=== PATIENT | male | born 1960 | race Caucasian/White ===

== ENCOUNTER 2017-05-10 08:46 | Inpatient (IN) | payer OTHER ==
[~2017-05-10 08:46] MED LIST: Buffered Lidocaine 0.9% SYRIN* 5 ML/SYR SYRINGE INTRADERM ONE; Metoclopramide TAB* 10 MG PO ONE
[2017-05-10] MEDS ORDERED: ceFAZolin 1 GM in Dextrose (*) 1 GM/50 ML BAG IVPB ONE (09:02)
[2017-05-10] MEDS ORDERED: Heparin VIAL(*) 5000 UNITS/ML VIAL (FIVE THOUSAND) ONE (09:02)
[2017-05-10] MEDS ORDERED: ceFAZolin 2 GM PREMIX (*) 2 GM/50 ML BAG IVPB ONE (09:02)
[2017-05-10] MEDS ORDERED: Metoclopramide TAB* 10 MG ONE (09:02)
[2017-05-10] MEDS ORDERED: Clindamycin 900 MG IVPREMIX(* 900 MG/50 ML SDV IV ONE (09:06)
[2017-05-10] MEDS ORDERED: fentaNYL* 50 MCG/ML 5 ML VIAL (250 MCG VIAL) ONE (10:16)
[2017-05-10] MEDS ORDERED: Lidocaine 2% PF * 5 ML VIAL ONE (10:16)
[2017-05-10] MEDS ORDERED: Rocuronium* 10 MG/ML VIAL ONE (10:16)
[2017-05-10] MEDS ORDERED: Midazolam* 1 MG/ML 10 ML VIAL (10 MG) ONE (10:16)
[2017-05-10] MEDS ORDERED: Ketorolac INJ* 30 MG/ML 1 ML VIAL ONE (10:16)
[2017-05-10] MEDS ORDERED: Ondansetron INJ* 2 MG/ML VIAL ONE (10:16)
[2017-05-10] MEDS ORDERED: KETAMINE HCL* 50 MG/ML 10 ML VIAL ONE (10:16)
[2017-05-10] MEDS ORDERED: Dexamethasone IV* 4 MG/ML 1 ML (4 MG) ONE (10:16)
[2017-05-10] MEDS ORDERED: Propofol* 10 MG/ML 20 ML BTL IV PUSH ONE (10:16)
[2017-05-10] MEDS ORDERED: Bupivacaine 0.25% SDV* 30 ML ONE (11:08)
[2017-05-10] MEDS ORDERED: Methylene Blue 0.5 %* 50 MG/10 ML AMP IV ONE (11:08)
[2017-05-10] MEDS ORDERED: EPHEDrine (Pressors)* 50 MG/ML VIAL ONE (11:57)
[2017-05-10] MEDS ORDERED: Atropine 1MG/ML INJ* 1 ML VIAL ONE (12:01)
[2017-05-10] MEDS ORDERED: Phenylephrine IV* 40 MCG/ML 10 ML SYRINGE ONE (12:07)
[2017-05-10] MEDS ORDERED: Ondansetron INJ* 2 MG/ML VIAL IV PRN ×2 (12:35→15:59)
[2017-05-10] MEDS ORDERED: Naloxone* 0.4 MG/ML 1 ML VIAL IV PRN (12:35)
[2017-05-10] MEDS ORDERED: fentaNYL* 50 MCG/ML 2 ML VIAL (100 MCG VIAL) IV PRN (12:35)
[2017-05-10] MEDS ORDERED: fentaNYL* 50 MCG/ML 2 ML VIAL (100 MCG VIAL) ONE (14:58)
[2017-05-10] MEDS ORDERED: HYDROmorphone INJ* 1 MG/ML CARPUJECT SYRINGE IV PRN (15:59)
[2017-05-10] MEDS ORDERED: diPHENhydraMINE IV* 50 MG/ML 1 ml VIAL (BENADRYL) SLOW PUSH PRN (15:59)
[2017-05-10] MEDS ORDERED: Acetaminophen ADULT LIQ* 650 MG/20.3 ML UDC PO PRN (15:59)
--- NOTE | 2017-05-10 16:11 | PN ---
Progress Note - Progress Note Date of Service: 05/10/17 Note: Brief Operative Note: Pre-op: Morbid obesity Post-op: Same Procedure: Laparoscopic RYGB with removal of gastric band Surgeon: Dr. Muller Occ Therapy Asst: ANNIKA Mendoza Anesthesia: GETA Fluids: LR 3,500 cc EBL: Minimal Catheter: Gage to gravity Drains: RIMA to self-suction Specimen: None Findings: See dictated op note
[2017-05-10] MEDS: Famotidine IV* 10 MG/ML 2 ML (20 mg) IV SLOW PU SCH (23:57)
[2017-05-10] MEDS: HYDROmorphone INJ* 2 MG/ML CARPUJECT SYRINGE IV PRN (23:57)
[2017-05-11] MEDS: Ketorolac INJ* 30 MG/ML 1 ML VIAL IV PRN ×3 (02:22→22:20)
[2017-05-11] MEDS: Heparin VIAL(*) 5000 UNITS/ML VIAL (FIVE THOUSAND) SUBCUT SCH ×3 (05:55→22:14)
[2017-05-11] MEDS: HYDROmorphone INJ* 2 MG/ML CARPUJECT SYRINGE IV PRN ×3 (06:01→18:37)
--- NOTE | 2017-05-11 08:34 | PN ---
Progress Note - Progress Note Date of Service: 05/11/17 SOAP: Subjective: C/o back pain and hasn't been OOB since arriving to floor. No N/V. Objective: Vital Signs Temp 97.9 F 05/10/17 18:40 Pulse 82 05/10/17 18:40 Resp 15 05/11/17 06:01 BP 152/85 05/10/17 18:40 Pulse Ox 93 05/10/17 20:18 Gen: NAD Abd: dressing c/d/i; soft; ND; mild tenderness; RIMA sanguinous. Intake & Output 05/10/17 05/11/17 05/11/17 18:59 06:59 18:59 Intake Total 3650 0 1920 Output Total 425 2960 Balance 3225 -2960 1920 Weight 291 lb 12.8 oz Intake: IV Fluids 3650 CEFAZOLIN 3 GMS 100 CLINDAMYCIN 900MG 50 LR 3500 IVPB 1920 LR 1920 Oral 0 Output: RIMA #1 25 110 Morales 400 2850 Assessment: POD#1 s/p LRYGB after removal LAGB. Plan: UGI xray this am prior to starting po. OOB/amb. d/c morales. Cont RIMA.
[2017-05-11] MEDS: Famotidine IV* 10 MG/ML 2 ML (20 mg) IV SLOW PU SCH ×2 (09:36→20:42)
--- NOTE | 2017-05-11 10:45 | RAD ---
INDICATION: 1 day postop following laparoscopic Hilda-en-Y bariatric surgery. COMPARISON: October 01, 2014 TECHNIQUE: 0.4 minutes fluoroscopy. FINDINGS: Swallowed Gastrografin passed from the small gastric pouch through the Hilda limb without delay. No enteric leak or obstruction evident. Associated laparoscopy port cutaneous pranav. Surgical drain in place. Neural stimulator leads noted. IMPRESSION: No evidence for enteric leak or obstruction following Hilda-en-Y gastric bypass. CPT II Codes: 6045F
[2017-05-11] MEDS: Gabapentin CAP(*) 300 MG PO SCH (12:45)
[2017-05-11] MEDS: HYDROcodone/ACET. 7.5/325 LIQ* 15 ML UDC PO PRN ×2 (14:21→20:41)
--- NOTE | 2017-05-11 14:48 | OP ---
CC: [facility] * DATE OF OPERATION: 05/10/17 - ROOM #352 DATE OF : 62 SURGEON: Tao Muller MD SPEECH AND HEARING DIRECTOR: ANNIKA Pitts ANESTHESIOLOGIST: Dr. Ryan Mcintosh. ANESTHESIA: General endotracheal. PRE-OP DIAGNOSIS: Clinically severe obesity, status post laparoscopic adjustable gastric banding. POST-OP DIAGNOSIS: Clinically severe obesity, status post laparoscopic adjustable gastric banding. OPERATIVE PROCEDURE: Removal of laparoscopic adjustable gastric band with laparoscopic Hilda-en-Y gastric bypass. ESTIMATED BLOOD LOSS: Minimal. IV FLUIDS: 3.5 L of crystalloid. SPECIMEN: None. DRAIN: 7 mm Vasiliy Colmenares. COMPLICATIONS: None. COUNTS: Instrument, needle, and sponge counts were correct. DESCRIPTION OF PROCEDURE: The patient was brought to the operating room and placed on the table supine. Sequential compression devices were placed on both lower extremities. General anesthesia was administered. A Gage catheter was placed. He was positioned and padded appropriately. He received appropriate intravenous antibiotics. His abdomen was prepped and draped in usual sterile fashion and time- out was performed. Local anesthetic was infiltrated into the skin and soft tissue prior to making each incision. Entry to the abdomen was through a left upper quadrant incision accommodating a 12-mm trocar. After accessing the peritoneal cavity, carbon dioxide was insufflated to a pressure of 15 mmHg. Under direct visualization, additional 12-mm bladeless trocar was placed in the epigastrium in the midline and also in the right upper quadrant. A 5-mm trocar was placed in the right upper quadrant medially and left upper quadrant laterally. A Elizabet liver retractor was placed percutaneously in the subxiphoid position and used to elevate the left lobe of the liver. The band was inspected and enrobed in fat and the buckle was identified. The cautery dissection was used to free the buckle of the band from the capsule and from the omental fat and then the buckle was cut and the band was removed from the retrogastric tunnel. The dissection of the stomach was quite tedious due to the fact that the patient had a previous adjustable gastric banding as well as a revision of adjustable gastric banding. So, there are numerous adhesions and there is a capsule scar tissue present over many areas of the upper stomach. Ultimately, the portions of capsule were divided so that the gastric wall could not be identified and plicating stitches previously placed of stomach to stomach as well as stomach to portions of gastric fat pad were taken down. Dissection proceeded around the left lateral aspect of the stomach where there was again significant scarring and capsule present. Ultimately, the decision was made to divide the stomach transversely with the firing of the Endo MANOJ stapler and this was performed after I had identified the lesser curvature below the area of the previously placed band and dissected into the lesser sac. The transverse firing was with a 45 mm purple cartridge. From this point, then the dissection proceeded in the direction of the angle of His and I entered to divide the stomach and create the pouch. Reinforced EndoGIA stapler cartridges were used with purple loads. After completing the division of the stomach, attempts were made to pass the 34-Bahraini gastric lavage tube; however, there was difficulty in getting the tube to make the turn into the gastric pouch and ultimately only an 18-Bahraini gastric tube could be advanced into the gastric pouch. At this time, the omentum and transverse colon were elevated. The omentum was divided down in the midline with a LigaSure. The transverse colon was elevated and the the ligament of Treitz was identified and the jejunum was then measured out for a length of about 50 cm, and at this point, the loop was sutured to the lateral staple line of the gastric pouch on the left with interrupted 2-0 silks. The gastrojejunal anastomosis was performed with a EndoGIA stapler with a rosenbaum 30 mm cartridge. However, after completing the anastomosis, it was determined that the stapler had dissected outside of the gastric lumen and therefore the mucosa of the stomach was not incorporated into the anastomosis. Therefore, it was decided to divide the gastric pouch above this staple line and this was done with an EndoGIA staple with purple cartridge. The anastomosis was then recreated, again using the same techniques at a more proximal portion of the stomach. The patency of the anastomosis was confirmed by inspecting it from the gastroenterotomy and then the gastroenterotomy was closed using a 3-0 PDS suture in a running fashion. Subsequently, the jejunal loop was divided and to the left of the anastomosis in order to resect the previous gastrojejunal anastomosis. This was done with two firings of the EndoGIA stapler with rosenbaum cartridges. Then the gastrojejunal anastomosis was tested with methylene blue dye solution instilled through the orogastric tube and there was no leak identified. The Hilda limb was then measured out for a length of 75 cm and at this point a jejunojejunostomy with performed in the side to side functional end-to-side fashion with a 60-mm rosenbaum cartridge and the common enterotomy again was closed with 3-0 PDS. Anti- obstruction sutures with 3-0 silk was placed as well. The mesenteric defect was closed with 3-0 silk in a running fashion. A RIMA drain size 7 mm was placed into the peritoneal cavity and withdrawn through the left upper quadrant 5-mm trocar and the drain was sutured in place and it was positioned along the left lateral aspect of the gastrojejunal anastomosis and pouch. Lastly the epigastric midline port was used to retrieve the transected portion of the jejunum, which have been placed in the endoscopic retrieval bag as well as the Lap Band itself. Lastly, the ports for the band was excised from the subcutaneous tissues using cautery. This epigastric site was the closed with a 0 Polysorb. The remaining trocars were removed under direct visualization as was the Elizabet liver retractor. The wounds were closed with pranav and the RIMA drain was placed to a self- suction. The dressings were applied. The patient tolerated the procedure well. He was extubated and transferred to Recovery in stable condition. NOTE: This procedure was much more difficult and typical due to the presence of the extensive adhesions and capsule scaring on the stomach due to the patient 's prior surgeries. Operative time for this case was approximately 3 hours and 38 minutes. [id number]/CPS #: [id number] RAQUEL
[2017-05-11] MEDS: D5W 1/2 NS KCl 20 Meq 1000 ML* 1,000 ML IV SCH (15:52)
[2017-05-11] MEDS ORDERED: Gabapentin CAP(*) 300 MG PO SCH (21:00)
[2017-05-12] MEDS: D5W 1/2 NS KCl 20 Meq 1000 ML* 1,000 ML IV SCH (00:01)
[2017-05-12] MEDS: HYDROcodone/ACET. 7.5/325 LIQ* 15 ML UDC PO PRN ×2 (03:46→09:22)
[2017-05-12] MEDS: Heparin VIAL(*) 5000 UNITS/ML VIAL (FIVE THOUSAND) SUBCUT SCH (05:48)
[2017-05-12] MEDS: HYDROmorphone INJ* 2 MG/ML CARPUJECT SYRINGE IV PRN (05:52)
--- NOTE | 2017-05-12 08:10 | SURGPN ---
Subjective - Introduction -: Admitted on: 05/10/2017 Patient's surgical date: 05/10/2017 Procedure completed: Laparoscopic gastric band removal with conversion to RYGB - Medications -: Active Medications Generic Name Dose Route Start Last Admin Trade Name Freq PRN Reason Stop Dose Admin Acetaminophen 650 mg 05/10/17 15:59 Tylenol Adult Liq* PO Q6H PRN Temp > 101 F Or Mild Pain Hydrocodone Bitart/Acetaminophen 15 ml 05/10/17 15:59 05/12/17 03:46 Nortab 7.5/325 Liq* PO 15 ml Q6H PRN Administration PAIN Diphenhydramine HCl 25 mg 05/10/17 15:59 Benadryl Iv* SLOW PUSH Q6H PRN ITCHING Famotidine 20 mg 05/10/17 21:00 05/11/17 20:42 Pepcid Iv* IV SLOW PU 20 mg BID RAMANA Administration Gabapentin 900 mg 05/11/17 21:00 05/11/17 20:38 Neurontin Cap(*) PO 900 mg BEDTIME RAMANA Administration Gabapentin 300 mg 05/11/17 12:00 05/11/17 12:45 Neurontin Cap(*) PO 300 mg 0900,1500 RAMANA Administration Heparin Sodium (Porcine) 5,000 units 05/11/17 06:00 05/12/17 05:48 Heparin Vial(*) SUBCUT 5,000 units Q8HR RAMANA Administration Hydromorphone HCl 0.5 mg 05/10/17 20:03 05/12/17 05:52 Dilaudid Inj* IV 0.5 mg Q3H PRN Administration PAIN Potassium Chloride/Dextrose 1,000 mls @ 125 mls/hr 05/11/17 16:03 05/12/17 00 :01 D5w 1/2 Ns Kcl 20 Meq 1000 Ml* IV 125 mls/hr PER RATE RAMANA Administration Ketorolac Tromethamine 30 mg 05/10/17 15:59 05/11/17 22:20 Toradol Inj* IV 05/12/17 16:03 30 mg Q6H PRN Administration PAIN Ondansetron HCl 4 mg 05/10/17 15:59 Zofran Inj* IV Q6H PRN NAUSEA/VOMITING - Comments Comments: Reports doing very well, minimal pain. Slept good last night. Tolerating bariatric clear liquids. Denies nausea or vomiting. Passing flatus, ready to go home. Objective - Objective -: Awake and alert, comfortable sitting on edge of bed, in NAD - Intake and Output -: Intake & Output 05/10/17 05/11/17 05/12/17 05/13/17 06:59 06:59 06:59 06:59 Intake Total 3650 4801 Output Total 3385 2575 Balance 265 2226 Weight 291 lb 12.8 oz Intake: IV Fluids 3650 1000 CEFAZOLIN 3 GMS 100 CLINDAMYCIN 900MG 50 D5W 1/2 NS 20 meq KCL 1000 LR 3500 IVPB 2901 LR 2901 Oral 0 900 Output: RIMA #1 135 125 Urine 1650 Gage 3250 800 Other: Estimated Void Medium # Bowel Movements 0 # Voids 1 Surgical Physical Exam - Comments -: Vitals reviewed, stable, Tmax 99.0 Lnugs CTA bilat. Heart RRR, no murmurs Abdomen soft, NT, ND. Incisions C/D/I. RIMA drain with approx. 20 cc light bloody output. No guarding or rigidity. Ext. without edema Assessment and Plan - Assessment -: POD#2, s/p laparoscopic gastric band removal with conversion to Hilda-en-Y gastric bypass, doing well. - Plan Additional Comments: D/C IVF D/C to home later this AM Will resume all his PO meds as prescribed, has a F/U appointment with PCP by the end of the month.
[2017-05-12] MEDS: Famotidine IV* 10 MG/ML 2 ML (20 mg) IV SLOW PU SCH (08:37)
[2017-05-12 08:55] VITALS: BP 150/99
[2017-05-12] MEDS: Gabapentin CAP(*) 300 MG PO SCH (09:53)
--- NOTE | 2017-05-13 00:22 | DS ---
DISCHARGE SUMMARY: DATE OF ADMISSION: 05/10/17 DATE OF DISCHARGE: 05/12/17 PATIENT OF: Tao Muller MD ADMISSION DIAGNOSIS: Morbid obesity. DISCHARGE DIAGNOSIS: Morbid obesity. ADMITTING PHYSICIAN: Tao Muller MD * (DICTATED BY ANNIKA ZAMORANO) CONSULTATIONS: None. PROCEDURE: Laparoscopic gastric band removal with conversion to laparoscopic Hilda- en-Y gastric bypass on 05/10/17. HISTORY OF PRESENT ILLNESS: Mr. Waters is a pleasant 57-year-old gentleman who has been followed by the [facility] regarding bariatric surgery. He had a laparoscopic gastric banding placed back in 2008 that initially had success with weight loss, but eventually failed to maintain it. He was seen multiple times by Dr. Muller in consideration to undergo a revision of surgery with conversion to gastric bypass on a later date. HOSPITAL COURSE: The patient was admitted on the same day in consideration for surgery. He was taken to the operating room where he underwent a laparoscopic gastric band removal and conversion to laparoscopic Hilda-en-Y gastric bypass on 05/10/17 that was essentially unremarkable. After recovery, he was transferred to the surgical floor for observation. He did relatively well with only mild incisional discomfort that was well tolerated using pain medicine if needed. It is to be noted that the patient has an intrathecal pump providing pain management due to chronic issue with low back pain that has been managed at [facility] by Dr. Del Toro. He had an upper GI on the following day that revealed no evidence of leak. He started on bariatric clear liquids diet that he tolerated well and was ambulatory out of bed. He continued to improve on the second day postoperatively and he was ready to be discharged home. All the discharge instructions were given to him both orally and written format, and the patient was advised to resume all his p.o. medicines prior to surgery and to follow up with his primary care physician within the next couple of weeks. DISCHARGE MEDICATIONS: Include: 1. Norvasc 5 mg p.o. daily. 2. Baclofen 20 mg p.o. t.i.d. 3. Cymbalta 30 mg p.o. q.a.m. 4. Gabapentin 300 mg q.a.m. and every afternoon as well as 900 mg q.h.s. 5. [place] 1 tablet p.o. t.i.d. as needed for pain. 6. Magnesium 250 mg p.o. b.i.d. 7. Toprol-XL 50 mg p.o. b.i.d. 8. Protonix 40 mg p.o. daily. 9. Multiple vitamin chewable 1 tablet daily. 10. Flomax 0.4 mg 1 tablet q.h.s. 11. Ultram 50 mg 2 tabs q.8 hours p.r.n. for pain. 12. Diovan 80 mg p.o. daily. PROBLEM LIST: Morbid obesity, status post laparoscopic gastric band removal with conversion to Hilda-en-Y gastric bypass on 05/10/17. ANNIKA ZAMORANO [id number]/[facility] #: [id number] MTDD
== END 2017-05-12 09:45 | disposition home or self-care (01) | DRG 403 ==
LOC: AA 08:46 → SSU 18:30
PROVIDERS: ADMIT Surgery; ATTEND Surgery
PROC: 0DP64CZ Removal of Extraluminal Device from Stomach, Percutaneous Endoscopic Approach (ICD-10-PCS; 2017-05-10)
PROC: 0D164ZA Bypass Stomach to Jejunum, Percutaneous Endoscopic Approach (ICD-10-PCS; principal; 2017-05-10 10:30)
DX: E66.01 Morbid (severe) obesity due to excess calories (principal); F32.9 Major depressive disorder, single episode, unspecified; I10 Essential (primary) hypertension; H91.90 Unspecified hearing loss, unspecified ear; G47.33 Obstructive sleep apnea (adult) (pediatric); M54.9 Dorsalgia, unspecified; F41.9 Anxiety disorder, unspecified; Z88.8 Allergy status to other drugs, medicaments and biological substances; Z88.5 Allergy status to narcotic agent; Z85.828 Personal history of other malignant neoplasm of skin; Z72.89 Other problems related to lifestyle; Z68.36 Body mass index [BMI] 36.0-36.9, adult
CPT/HCPCS: 43644; 43774; 74246; A9270-GY; C1776; J0461; J0690; J1100; J1170; J1644; J1885; J2250; J2405; J2704; J3010